=== PATIENT | male | born 1935 ===

== ENCOUNTER 2016-09-01 07:36 | Day surgery (SDC) | payer MEDICARE ==
[2016-08-28 10:18] VITALS: BMI 35.7
[2016-09-01] MEDS ORDERED: cefTRIAXone IV 1 gm in Dextros 50 ML IVPB ONE (09:12)
[2016-09-01] MEDS ORDERED: Ciprofloxacin 400mg/200ml D5W 0 ML IVPB ONE (09:12)
[2016-09-01] MEDS ORDERED: Iohexol 240 (50 ml) ONE (09:12)
[2016-09-01] MEDS ORDERED: Lactated Ringer's 1,000 ML IV ONE (09:30)
[2016-09-01] MEDS ORDERED: Sodium Chloride 0.9% 500 ML IV ONE ×2 (09:30→10:04)
[2016-09-01] MEDS ORDERED: Midazolam 2 MG/2 ML VIAL ONE (09:34)
[2016-09-01] MEDS ORDERED: Propofol 10 mg/ml Inj (20 ML) ONE (09:35)
[2016-09-01] MEDS ORDERED: Phenylephrine 10 mg/ml Inj ONE (09:53)
--- NOTE | 2016-09-01 10:55 | RAD ---
PROCEDURE: Fluoroscopy up to 1 hr. HISTORY: HYDRONEPHROSIS COMPARISON: None TECHNIQUE: Standard protocol for this study/examination. FINDINGS: Submitted images from the current procedure: 7.0 IMPRESSION: Less than 1 hr fluoroscopic time utilized during performance of the procedure.
--- NOTE | 2016-09-01 11:09 | OP ---
PROCEDURE DATE: 09/01/2016 PREOPERATIVE DIAGNOSES: Bilateral hydroureteronephrosis and metastatic prostate cancer. POSTOPERATIVE DIAGNOSES: Bilateral hydroureteronephrosis and metastatic prostate cancer. PROCEDURE: Cystoscopy with dilatation of urethral meatal stenosis, and bilateral ureteral stent exch mingo. SURGEON: Jay Abarca MD. DESCRIPTION OF PROCEDURE: The patient was brought to the operating room. He was premedicated with R ocephin 1 gram IV piggyback, placed in lithotomy position under anesthesia. Examination of the penis revealed partial phimosis with a snug partially hidden urethral meatus. I was easily able to dilate it atraumatically up to 26-Russian using curved metal sounds. We then introduced a 22-Russian cystosc ope. Anterior and bulbar urethra was normal. The bladder neck was somewhat tight and rigid, but we were able to negotiate this without any problems. Within the urinary bladder, 2 distal ends of bilat eral ureteral stent coils were noted with some mild cystitis noted as well. We now turned our attention to the right stent. Using a grasper, I was able to remove the right uret eral stent to the urethral meatus. I tried to backload a ureteral guidewire through the lumen, but t his was unsuccessful. We then removed the right ureteral stent in its entirety and discarded it, rep laced the cystoscope, and under direct vision, using both a ureteral open-ended catheter and the Glid ewire, I was able to intubate the right ureter up to the right renal pelvis. We then advanced a [employer] 6-Russian multilength contour VL stent using fluoroscopic and cystoscopic control. In a similar manner, we removed the left ureteral stent, and then under direct vision, we were able to pl [place] a left-sided Glidewire with the help of an open-ended ureteral stent. After determining good coi ling in the proximal left renal pelvis, we then advanced a second [employer] 6-Russian multilen gth contour VL stent, and using cystoscopic and fluoroscopic control, were able to place the stent, a nd of course, remove the Glidewire. We then slightly manipulated, using a grasper, both distal ends of the stent to pull them out about a centimeter or so. We had good coiling proximally and distally. The bladder was emptied, the scope removed. The patient tolerated the procedure well. Jay Abarca MD cc: 66 TT: 09/01/2016 11:01:39 jn
--- NOTE | 2016-09-01 16:42 | RAD ---
HISTORY: HYDRONEPHROSIS COMPARISON: 03/17/2016. FINDINGS: BOWEL: Normal. No obstruction. No free air. BONES: Scoliosis, secondary degenerative change at multiple levels. New line asymmetric sclerosis of the left iliac bone and right sacroiliac region likely sclerotic metastatic disease unchanged compared prior studies. Sclerotic changes in the right femur intertrochanteric region incompletely visualize. OTHER FINDINGS: Position of the double J stent catheter(s): Satisfactory bilaterally. Surgical clips pelvis likely related prior prostatectomy. IMPRESSION: Satisfactory position double-J stent catheters. Sclerotic metastatic disease pelvis and visualized proximal right femur
[2016-09-03 15:31] VITALS: PULSE 60
[2016-09-03 15:34] VITALS: BP 120/70; RESP 19; TEMP 97.6; O2SAT 100
== END 2016-09-01 13:13 | disposition home or self-care (01) ==
LOC: C.SDS 07:36
PROVIDERS: ATTEND Urology
DX: N13.30 Unspecified hydronephrosis (principal); C61 Malignant neoplasm of prostate; N47.1 Phimosis; N35.8 Other urethral stricture; I12.9 Hypertensive chronic kidney disease with stage 1 through stage 4 chronic kidney disease, or unspecified chronic kidney disease; N18.9 Chronic kidney disease, unspecified
CPT/HCPCS: 52332; 74000; 87086; C1769; C2617; J0696; J7040

== ENCOUNTER 2017-05-06 07:25 | Day surgery (SDC) | payer MEDICARE ==
[2017-05-04 11:16] VITALS: BMI 34.4
[2017-05-06] MEDS ORDERED: Iohexol 240 (50 ml) ONE (08:50)
[2017-05-06] MEDS ORDERED: Ciprofloxacin 400mg/200ml D5W 0 MG/0 ML BAG IVPB ONE (08:50)
[2017-05-06] MEDS ORDERED: Lidocaine 2% Jelly (Uro-Jet) ONE (08:51)
[2017-05-06] MEDS ORDERED: Lactated Ringer's 500 ML IV ONE ×2 (09:13)
[2017-05-06] MEDS ORDERED: Midazolam 2 MG/2 ML VIAL ONE (09:18)
[2017-05-06] MEDS ORDERED: Propofol 10 mg/ml Inj (20 ML) ONE (09:18)
[2017-05-06] MEDS ORDERED: Gentamicin 80 mg in 0.9% NS 160 MG/200 ML BAG IVPB ONE (09:23)
[2017-05-06] MEDS ORDERED: cefTRIAXone IV 1 gm in Dextros 50 ML IVPB ONE (09:23)
[2017-05-06] MEDS: Lactated Ringer's 500 ML IV ONE (10:15)
[2017-05-06] MEDS ORDERED: HYDROmorphone 0.5 mg/0.5 ml ISec IVP PRN (10:34)
[2017-05-06] MEDS ORDERED: Lactated Ringer's 1,000 ML IV SCH (10:45)
--- NOTE | 2017-05-06 10:54 | RAD ---
PROCEDURE: Intraoperative fluoroscopy HISTORY: PROSTATE CANCER, BILAT HIDRONEPHROSIS COMPARISON: Not available TECHNIQUE: Intraoperative fluoroscopy was performed for placement of bilateral ureteral stents. Total time of fluoroscopy was 56.2 seconds. FINDINGS: Multiple fluoroscopic spot films are submitted. Films are on file for review. IMPRESSION: Fluoroscopy provided.
[2017-05-06 11:46] VITALS: RESP 20; O2SAT 97
[2017-05-06 12:10] VITALS: BP 125/75; PULSE 65; TEMP 97.7
--- NOTE | 2017-05-06 12:40 | OP ---
PROCEDURE DATE: 05/06/2017 PREOPERATIVE DIAGNOSES: Bilateral hydroureteronephrosis and stage D adenocarcinoma of the prostate. 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 PROCEDURE: Cystoscopy and bilateral ureteral stent exchange, and urethral meatal dilatation. SURGEON: Jay Abarac MD OPERATIVE PROCEDURE: The patient was brought to the operating room. He was premedicated with gentamicin 160 mg and Rocephin 1 g IV piggyback. The patient was placed in lithotomy position. A sequential compression stockings were placed, prepped and draped in the usual fashion. A partial phimosis was noted. The urethral meatus was snug and I could not easily introduce to the 22-Tristanian with an obturator. Accordingly, using curve metal starting in 22-Tristanian, I easily dilated up the urethral meatus up to 26-Tristanian. We would now able to easily traverse the urethral meatus and enter the bladder. The urethra was normal. The prostate was snug and tight especially at the bladder neck, but we could easily get into the bladder. The distal ends of both ureteral stents were noted and there was some edema of the bladder mucosa in that area as expected. We initially partially removed the left ureteral stent with a grasper and upon bringing it out to the meatus, we tried, but could not backload a guidewire through it. Accordingly, the stent was removed in its entirety and discarded. By replacing the scope, we are able now to visually and radiographically insert a left guidewire up to the left kidney. We then placed a contour 6-Tristanian Multilink ureteral stent, retrograde with fluoroscopic and cystoscopic imaging. We were then able to positioned the stent itself in the renal pelvis and had quelling in the bladder. In a similar fashion, we now removed the right ureteral stent, but this time, we were able to backload a guidewire up to the kidney. The right stent was now discarded. A second contour 6-Tristanian Multilink ureteral stent was placed and retrograde with positioning via fluoroscopic and cystoscopic control. The patient tolerated the procedure well. Jay Abarca MD
[2017-05-06 12:44] LABS: URINE BACTERIA RARE (<OCC); URINE BILIRUBIN NEGATIVE (NEGATIVE); URINE BLOOD 3+ (NEGATIVE); URINE COLOR Colorless (YELLOW); URINE GLUCOSE (UA) NORMAL (Normal); URINE HYALINE CAST 0-2 /lpf (0-2); URINE KETONE NEGATIVE (NEGATIVE); URINE LEUKOCYTE ESTERASE TRACE Leu/uL (Negative); URINE PROTEIN NEGATIVE (NEGATIVE); URINE UROBILINOGEN NORMAL mg/dL (0.2-1.0); WBC URINE 1 /hpf (0-5)
[2017-05-06 12:45] LABS: RBC URINE 9 /hpf (0-3)
[2017-05-07] MEDS ORDERED: Metoprolol Succinate 25 mg XL Tab PO SCH (10:00)
== END 2017-05-06 12:05 | disposition home or self-care (01) ==
LOC: C.SDS 07:25
PROVIDERS: ATTEND Urology
DX: N13.30 Unspecified hydronephrosis (principal); R97.21 Rising PSA following treatment for malignant neoplasm of prostate; C61 Malignant neoplasm of prostate
CPT/HCPCS: 50395; 52332; 76000; 81001; 87086; FLUOR; J0696; J1580; J7120

== ENCOUNTER 2017-10-21 07:13 | Day surgery (SDC) | payer MEDICARE ==
[2017-10-19 09:54] VITALS: BMI 33.3
[2017-10-21] MEDS ORDERED: Ciprofloxacin 400mg/200ml D5W 400 MG/200 ML BAG IVPB ONE (09:06)
[2017-10-21] MEDS ORDERED: Iohexol 240 (50 ml) ONE (09:06)
[2017-10-21] MEDS ORDERED: cefTRIAXone IV 1 gm in Dextros 50 ML IVPB ONE (09:32)
[2017-10-21] MEDS ORDERED: HYDROmorphone 0.5 mg/0.5 ml ISec IVP PRN (10:07)
--- NOTE | 2017-10-21 10:49 | RAD ---
PROCEDURE: Intraoperative fluoroscopy HISTORY: BILAT HYDRONEPHROSIS COMPARISON: Not available TECHNIQUE: Intraoperative fluoroscopy was provided for a ureteral stent change. Total time of fluoroscopy was 33.9 seconds. FINDINGS: Four fluoroscopic spot films are submitted. Films are on file for review. IMPRESSION: Fluoroscopy provided
[2017-10-21 11:45] VITALS: PULSE 73; RESP 16; TEMP 97.5
[2017-10-21 12:15] VITALS: BP 121/67; O2SAT 99
--- NOTE | 2017-10-21 21:21 | OP ---
PROCEDURE DATE: 10/21/2017 PREOPERATIVE DIAGNOSES: Bilateral hydronephrosis and prostate cancer. POSTOPERATIVE DIAGNOSES: Bilateral hydronephrosis and prostate cancer. PROCEDURE: Cystoscopy with bilateral indwelling ureteral stent exchange. SURGEON: Jay Abarca MD DESCRIPTION OF PROCEDURE: The patient was brought to the operating room, premedicated with 1 gm of Rocephin IV piggyback, prepped and draped in the usual fashion, placed in lithotomy position. Examination of the penis reveals partial phimosis; however, I was easily able to calibrate the urethral meatus up to 26 German without any snugness and clearly this area is not strictured as it was previously. We now inserted a 22-German cystoscope. The anterior and bulbar urethra were normal. The bladder revealed hyperemia compatible with chronic stents and 2 distal ends of stents were seen in the bladder. Fluoroscopy confirmed the proximal positioning of both previously placed stents. Using a grasping forceps, I was able to partially remove the left ureteral stent out to the urethral meatus and then back load a glide wire up to the renal pelvis. The stent was removed in its entirety and discarded. Then, a fresh [place] [employer] contour VL 6-German Multi-Link stent was replaced using fluoroscopic and cystoscopic control. In a similar fashion, we were able to remove the right ureteral stent up to the meatus and a glide wire back loaded. That right sided stent was now removed and discarded. The glide wire was back loaded through the scope and then under visual and cystoscopic and fluoroscopic control, a second [place] [employer] Contour VL 6-German Multi-Link stent was placed up to the right kidney. After both stents were inserted, I reinserted the grasping forceps just to gently tug on the left distal stent in the bladder and pulled it down a bit, and the placement now was confirmed to be in good position proximally and distally for both stents. The bladder was emptied and the scope removed. The patient tolerated the procedure well. Jay Abarca MD
== END 2017-10-21 12:13 | disposition home or self-care (01) ==
LOC: C.SDS 07:13
PROVIDERS: ATTEND Urology
DX: N13.30 Unspecified hydronephrosis (principal); C61 Malignant neoplasm of prostate; I12.9 Hypertensive chronic kidney disease with stage 1 through stage 4 chronic kidney disease, or unspecified chronic kidney disease; N18.9 Chronic kidney disease, unspecified; F32.9 Major depressive disorder, single episode, unspecified; D64.9 Anemia, unspecified
CPT/HCPCS: 52332; C1769; C2617; J0696

== ENCOUNTER 2017-12-08 13:02 | Inpatient (IN) | payer MEDICARE ==
[2017-12-08 13:02] VITALS: BMI 31.8
--- NOTE | 2017-12-08 14:46 | RAD ---
PROCEDURE: CHEST RADIOGRAPH, 1 VIEW HISTORY: SOB COMPARISON: Chest radiograph dated 10/19/2017. FINDINGS: LUNGS: Clear. PLEURA: No pneumothorax or pleural fluid seen. CARDIOVASCULAR: Atherosclerotic aortic calcifications. Cardiomediastinal silhouette stably prominent. OSSEOUS STRUCTURES: Unchanged. VISUALIZED UPPER ABDOMEN: Partially imaged right ureteral stent. Right upper quadrant surgical clips. OTHER FINDINGS: None. IMPRESSION: No active disease.
--- NOTE | 2017-12-08 14:58 | C.PDOC ---
History Of Present Illness 82 year old male sent to ER by Dr. Gee for abnormal lab work. As per ex- , patient has a Hx of cancer and has been having diarrhea since last night, associated with loss of appetite, weight loss, and weakness. Patient is currently receiving two week treatments every other two weeks. Time Seen by Provider: 12/08/17 14:09 Chief Complaint (Nursing): Abnormal Labs History Per: Family Onset/Duration Of Symptoms: Days Current Symptoms Are (Timing): Still Present Recent travel outside of the [place]: No Past Medical History Reviewed: Historical Data, Nursing Documentation, Vital Signs Vital Signs: Last Vital Signs Temp 97.7 F 12/08/17 13:05 Pulse 74 12/08/17 16:00 Resp 19 12/08/17 16:00 BP 118/69 12/08/17 16:00 Pulse Ox 100 12/08/17 18:11 - Medical History PMH: Anemia, Gall Bladder Disease (CHOLECYSTECTOMY), HTN, Peripheral Edema (1 year ago post radiation rx no longer), Chronic Kidney Disease Surgical History: [facility], [facility] CLOSED ENDOSCOPIC BIOPSY OF LARGE INTESTINE (05/06/05) ENDOSC POLYPECTOMY OF LG INTEST (06/10/02) FLUOROSCOPY OF R JUGULAR VEIN USING L OSM CONTRAST, GUIDANCE (06/26/15) INSERT INFUSION DEV IN R INT JUGULAR VEIN, PERC (06/26/15) INSERTION OF OTHER DEVICE INTO GENITOURINARY TRACT, ENDO (06/26/15) PACKED CELL TRANSFUSION (05/15/14) PERCU NEPHROSTM W/O FRAG (04/21/14) PERCUTAN NEEDLE BX OF INTRA-ABDOMINAL MASS (04/21/14) PERCUTANEOUS PYELOGRAM (07/18/14) PERFORMANCE OF URINARY FILTRATION, MULTIPLE (06/26/15) RADIOTHERAPEUT PROC NEC (05/15/14) REMOV URETERAL DRAIN (11/15/14) REPLACE INDWELLING CATH (11/15/14) ULTRASONOGRAPHY OF RIGHT JUGULAR VEINS, GUIDANCE (06/26/15) URETERAL CATHETERIZATION (04/21/14) URETHRAL DILATION (11/15/14) VACCINATION NEC (07/18/14) Family History: States: Unknown Family Hx - Social History Hx Tobacco Use: No Hx Alcohol Use: No Hx Substance Use: No - Immunization History Hx Influenza Vaccination: Yes Hx Pneumococcal Vaccination: Yes Review Of Systems Constitutional: Positive for: Weakness, Weight loss. Negative for: Fever, Chills ENT: Negative for: Ear Pain, Throat Swelling Cardiovascular: Negative for: Chest Pain, Palpitations Respiratory: Negative for: Cough, Shortness of Breath Gastrointestinal: Positive for: Diarrhea. Negative for: Nausea, Vomiting Neurological: Negative for: Numbness Physical Exam - Physical Exam Appears: Chronically Ill Skin: Warm, Dry, No Rash, Jaundice Head: Atraumatic, Normacephalic Eye(s): bilateral: Normal Inspection, PERRL, EOMI Oral Mucosa: Moist Neck: Normal, Supple Chest: Symmetrical, No Tenderness Cardiovascular: Rhythm Regular, No Friction Rub, No Murmur Respiratory: Normal Breath Sounds, No Rales, No Rhonchi, No Wheezing Gastrointestinal/Abdominal: Soft, No Tenderness, Distention (Mild to moderate), Other (periumbilical ecchymosis) Back: Normal Inspection, No CVA Tenderness Extremity: Normal ROM, No Pedal Edema Neurological/Psych: Oriented x3, Normal Speech Gait: Steady ED Course And Treatment - Laboratory Results Result Diagrams: 12/08/17 14:52 12/08/17 14:52 O2 Sat by Pulse Oximetry: 100 (Room air) Pulse Ox Interpretation: Normal - Radiology CXR: Read By Radiologist CXR Interpretation: Yes: No Acute Disease - Other Rad CXR X-Ray: Read By Radiologist Interpretation: Accession No. : [id number]. Patient Name / ID : ALFRED KENT / [id number]. Exam Date : 12/08/2017 14:40:10 ( Approved ). Study Comment : Sex / Age : M / [id number]. Creator : Nazario Hewitt MD. Dictator : Nazario Hewitt MD. Oracle Applications Developer : Prototype Machine Operator : Nazario Hewitt MD. Approver2 : Report Date : 12/08/2017 14:45:28. My Comment : . PROCEDURE: CHEST RADIOGRAPH, 1 VIEW. HISTORY: SOB. COMPARISON: Chest radiograph dated 10/19/2017. FINDINGS: LUNGS: Clear. PLEURA: No pneumothorax or pleural fluid seen. CARDIOVASCULAR: Atherosclerotic aortic calcifications. Cardiomediastinal silhouette stably prominent. OSSEOUS STRUCTURES: Unchanged. VISUALIZED UPPER ABDOMEN: Partially imaged right ureteral stent. Right upper quadrant surgical clips. OTHER FINDINGS: None. IMPRESSION: No active disease. Medical Decision Making Medical Decision Making: Blood work, CXR, and urinalysis ordered. The case was discussed with Dr. Gee who wants to consult on the patient for hematology. The case was discussed with Dr. Huddleston (covers for Dr. Arvizu ) who agrees to admit the patient on his service. Disposition - Disposition Disposition: HOSPITALIZED Disposition Time: 15:00 Condition: STABLE - POA Present On Arrival: None - Clinical Impression Clinical Impression: Anemia, Ascites, Acute renal failure, Failure to thrive - PA / BOOK CANVASSER / Resident Statement MD/DO has reviewed & agrees with the documentation as recorded. - Scribe Statement The provider has reviewed the documentation as recorded by the [place] Kaplan All medical record entries made by the [place] were at my direction and personally dictated by me. I have reviewed the chart and agree that the record accurately reflects my personal performance of the history, physical exam, medical decision making, and the department course for this patient. I have also personally directed, reviewed, and agree with the discharge instructions and disposition.
[2017-12-08 15:03] LABS: BASO % 0.7 % (0.0-2.0); EOS # 0.1 K/uL (0.0-0.7); EOS % 1.6 % (0.0-4.0); HEMOGLOBIN 8.9 g/dL (12.0-18.0); LYMPH # 1.2 K/uL (1.0-4.3); LYMPH % 17.7 % (20.0-40.0); MEAN CELL VOLUME 90.9 fL (80.0-94.0); MEAN CORPUSCULAR HEMOGLOBIN 29.1 pg (27.0-31.0); MEAN PLATELET VOLUME 7.6 fL (7.2-11.7); MONO # 0.4 K/uL (0.0-0.8); MONO % 6.6 % (0.0-10.0); NEUT # 4.9 K/uL (1.8-7.0); NEUT % 73.4 % (50.0-75.0); NRBC % 0.1 % (0.0-2.0); RBC 3.04 Mil/uL (4.40-5.90); RED CELL DISTRIBUTION WIDTH 18.4 % (11.5-14.5); WHITE BLOOD COUNT 6.7 K/uL (4.8-10.8)
[2017-12-08 15:04] LABS: SQUAMOUS EPITHIAL 3 /hpf (0-5); URINE BACTERIA OCC (<OCC); URINE BILIRUBIN NEGATIVE (NEGATIVE); URINE BLOOD 3+ (NEGATIVE); URINE CLARITY Hazy (Clear); URINE COLOR Amber (YELLOW); URINE GLUCOSE (UA) NORMAL (Normal); URINE LEUKOCYTE ESTERASE 2+ Leu/uL (Negative); URINE PROTEIN 2+ mg/dL (NEGATIVE); URINE UROBILINOGEN NORMAL mg/dL (0.2-1.0)
[2017-12-08 15:09] LABS: ALB/GLOB RATIO 1.6 (1.0-2.1); ALBUMIN 3.9 g/dL (3.5-5.0); ALT/SGPT 22 U/L (21-72); AST/SGOT 32 U/L (17-59); BLOOD UREA NITROGEN 33 mg/dL (9-20); CALCIUM 8.4 mg/dl (8.6-10.4); GFR AFRICAN-AMERICAN 30; GFR NON-AFRICAN AMERICAN 25; INR 1.3; PROTHROMBIN TIME 14.6 SECONDS (9.7-12.2)
[2017-12-08 15:20] LABS: B-TYPE NATRIURETIC PEPTIDE 807 pg/mL (0-900); CK-MB 0.98 ng/mL (0.0-3.38)
[2017-12-08] MEDS ORDERED: Sodium Chloride 0.9% 1,000 ML IV ONE (16:14)
[2017-12-08] MEDS ORDERED: Sodium Chloride 0.9% 1,000 ML ONE (16:22)
[2017-12-08] MEDS ORDERED: Dextrose 5%/0.9% NS 1,000 ML IV ONE (20:00)
--- NOTE | 2017-12-08 20:49 | CP.PCM.HP ---
History of Present Illness - History of Present Illness History of Present Illness: Chief complaint: Abdominal pain HPI: 81-year-old male with a history of chronic kidney disease, anemia, hypertension , prostate cancer, status post radiation treatment, history of acute renal insufficiency, bilateral hydronephrosis, bilateral stent in the urethral area, also multiple metastatic pancreatic prostatic cancer. Patient was having difficulty in going to the bathroom for almost 2 weeks. 2 weeks ago patient had a severe constipation, he started using an enema with some improvement. But following that he started having increasing abdominal distention, abdominal discomfort, and poor appetite. He was also having diarrheal episodes on and off. Difficulty in breathing. So he came into the emergency room after he was seen by today he started having increasing abdominal distention, and worsening oncologist in the office. He has a nausea, poor appetite, but no vomiting noted. Patient has some urinary discomfort, and blood in the urine noted Patient in the past had acute renal insufficiency, secondary to obstruction, and underwent a hemodialysis in the past. But post stent placement he started making urine, renal function was returning to near normal. Past medical history: Metastatic prostatic cancer, with intra-abdominal extension. Status post treatment. Hypertension. Depression. Renal insufficiency Anemia. Gallbladder disease Surgical history: Patient had a multiple surgical intervention for the ureteral obstruction. Hemodialysis in the past. Allergies: No known drug allergy Personal history: Non-smoker nonalcoholic. He denies any drug abuse. Patient lives with the family. Patient has a good family support Review of system: He has no headache. He denies any chest pain. Complaining of no nausea vomiting. He does not take any pain medications. Complaining of increasing abdominal discomfort, abdominal distention, constipation on and off. On examination: Vital signs stable. Chest bilateral good air entry. Regular heart sound noted. Abdominal distention, noted. Decreased bowel movements noted. Pedal edema 1+ noted. BLENDING MACHINE OPERATOR alert awake oriented Labs reviewed Elevation of the creatinine level noted. Anemia present. Chest x-ray is nonspecific Assessment and recommendation: 81-year-old male with a history of hypertension, renal insufficiency, with history of acute intestinal obstruction renal insufficiency in the past. Did have a hemodialysis in the past. Patient has a obstruction secondary to metastatic prostatic cancer, status post distant bilaterally. Patient now have abdominal distention, possibly secondary to dynamic ileus cannot be ruled out. Intestinal obstruction cannot be ruled out. Suggested to have a CAT scan of the abdomen and pelvis. IV fluids to be continued. Rule out hydronephrosis. Hematuria, likely secondary to malignancy. Cultures were ordered. Pain management as needed. GI evaluation may be needed. And also urology. DVT GI prophylaxis. We will follow the patient. Present on Admission - Present on Admission Any Indicators Present on Admission: No History of DVT/PE: No History of Uncontrolled Diabetes: No Urinary Catheter: No Decubitus Ulcer Present: No Past Patient History - Infectious Disease Hx of Infectious Diseases: None - Tetanus Immunizations Tetanus Immunization: Unknown - Past Medical History & Family History Past Medical History?: Yes - Past Social History Smoking Status: Never Smoked - CARDIAC Hx Hypertension: Yes Hx Peripheral Edema: Yes (1 year ago post radiation rx no longer) - RENAL Hx Chronic Kidney Disease: Yes - HEMATOLOGICAL/ONCOLOGICAL Hx Anemia: Yes - MUSCULOSKELETAL/RHEUMATOLOGICAL Other/Comment: HX: CANCER-BONE"NO SURE EXACTLY WHAT PART OF BODY" - GASTROINTESTINAL Hx Gall Bladder Disease: Yes (CHOLECYSTECTOMY) - GENITOURINARY/GYNECOLOGICAL Hx Genitourinary Disorders: Yes Hx Prostate Cancer: Yes Hx Prostate Problems: Yes Hx Urinary Tract Infection: Yes (2-9-15) Other/Comment: HAD BILATERAL NEPHROSTOMY WERE REMOVED - PSYCHIATRIC Hx Substance Use: No - SURGICAL HISTORY Hx Cholecystectomy: Yes - ANESTHESIA Hx Anesthesia: Yes Hx Anesthesia Reactions: No Hx Malignant Hyperthermia: No Meds Allergies/Adverse Reactions: Allergies Allergy/AdvReac Type Severity Reaction Status Date / Time No Known Allergies Allergy Verified 06/26/15 16:33 Results - Vital Signs Recent Vital Signs: Last Vital Signs Temp 97.9 F 12/08/17 18:20 Pulse 82 12/08/17 18:20 Resp 20 12/08/17 18:20 BP 124/74 12/08/17 18:20 Pulse Ox 100 12/08/17 18:20 - Labs Result Diagrams: 12/08/17 14:52 12/08/17 14:52 Labs: Laboratory Results - last 24 hr 12/08/17 12/08/17 12/08/17 14:52 14:52 14:52 WBC 6.7 RBC 3.04 L Hgb 8.9 L Hct 27.7 L MCV 90.9 MCH 29.1 MCHC 32.0 L RDW 18.4 H Plt Count 258 MPV 7.6 Neut % (Auto) 73.4 Lymph % (Auto) 17.7 L [place] % (Auto) 6.6 Eos % (Auto) 1.6 Baso % (Auto) 0.7 Neut # (Auto) 4.9 Lymph # (Auto) 1.2 [place] # (Auto) 0.4 Eos # (Auto) 0.1 Baso # (Auto) 0.0 PT INR APTT Sodium 143 Potassium 5.2 Chloride 107 Carbon Dioxide 20 L Anion Gap 21 H BUN 33 H Creatinine 2.5 H Est GFR ( Amer) 30 Est GFR (Non-Af Amer) 25 Random Glucose 103 Calcium 8.4 L Total Bilirubin 1.7 H AST 32 ALT 22 Alkaline Phosphatase 58 Total Creatine Kinase 76 CK-MB (Mass) 0.98 Troponin I < 0.0120 NT-Pro-B Natriuret Pep 807 Total Protein 6.4 Albumin 3.9 Globulin 2.5 Albumin/Globulin Ratio 1.6 Urine Color Urine Clarity Urine pH Ur Specific [place] Urine Protein Urine Glucose (UA) Urine Ketones Urine Blood Urine Nitrate Urine Bilirubin Urine Urobilinogen Ur Leukocyte Esterase Urine WBC (Auto) Urine RBC (Auto) Ur Squamous Epith Cells Urine Bacteria Blood Type O POSITIVE Antibody Screen Negative 12/08/17 12/08/17 14:52 14:52 WBC RBC Hgb Hct MCV MCH MCHC RDW Plt Count MPV Neut % (Auto) Lymph % (Auto) [place] % (Auto) Eos % (Auto) Baso % (Auto) Neut # (Auto) Lymph # (Auto) [place] # (Auto) Eos # (Auto) Baso # (Auto) PT 14.6 H INR 1.3 APTT 31 Sodium Potassium Chloride Carbon Dioxide Anion Gap BUN Creatinine Est GFR ( Amer) Est GFR (Non-Af Amer) Random Glucose Calcium Total Bilirubin AST ALT Alkaline Phosphatase Total Creatine Kinase CK-MB (Mass) Troponin I NT-Pro-B Natriuret Pep Total Protein Albumin Globulin Albumin/Globulin Ratio Urine Color [place] Urine Clarity Hazy Urine pH 5.0 Ur Specific [place] 1.015 Urine Protein 2+ H Urine Glucose (UA) Normal Urine Ketones Negative Urine Blood 3+ H Urine Nitrate Negative Urine Bilirubin Negative Urine Urobilinogen Normal Ur Leukocyte Esterase 2+ H Urine WBC (Auto) 84 H Urine RBC (Auto) 1329 H Ur Squamous Epith Cells 3 Urine Bacteria Occ H Blood Type Antibody Screen
[2017-12-09 07:58] LABS: BASO % 0.5 % (0.0-2.0); EOS # 0.1 K/uL (0.0-0.7); EOS % 2.1 % (0.0-4.0); HEMOGLOBIN 7.7 g/dL (12.0-18.0); LYMPH % 16.8 % (20.0-40.0); MEAN CELL VOLUME 89.8 fL (80.0-94.0); MEAN CORPUSCULAR HEMOGLOBIN 30.3 pg (27.0-31.0); MEAN CORPUSCULAR HGB CONC 33.8 g/dL (33.0-37.0); MEAN PLATELET VOLUME 7.5 fL (7.2-11.7); MONO # 0.6 K/uL (0.0-0.8); MONO % 10.4 % (0.0-10.0); NEUT # 4.2 K/uL (1.8-7.0); NEUT % 70.2 % (50.0-75.0); NRBC % 0.1 % (0.0-2.0); RBC 2.54 Mil/uL (4.40-5.90); RED CELL DISTRIBUTION WIDTH 18.2 % (11.5-14.5)
[2017-12-09 08:39] LABS: ALB/GLOB RATIO 1.3 (1.0-2.1); ALBUMIN 2.9 g/dL (3.5-5.0); CALCIUM 7.8 mg/dl (8.6-10.4)
--- NOTE | 2017-12-09 10:02 | CT ---
PROCEDURE: CT Abdomen and Pelvis without intravenous contrast HISTORY: obstruction COMPARISON: CT scan of the abdomen and pelvis dated 06/26/2015. TECHNIQUE: Contiguous images were obtained from the domes of the diaphragms to the upper thighs without the administration of intravenous contrast. Oral contrast was not administered. Radiation dose: Total exam DLP = 1010.7 mGy-cm. This CT exam was performed using one or more of the following dose reduction techniques: Automated exposure control, adjustment of the mA and/or kV according to patient size, and/or use of iterative reconstruction technique. FINDINGS: LOWER THORAX: Bibasilar atelectasis/scarring. No focal consolidation. Cardiomegaly. Multiple right pericardiophrenic lymph nodes, the largest measures 2.8 x 2.7 cm. LIVER: Scattered right hepatic lobe calcifications. No gross lesion or ductal dilatation. GALLBLADDER AND BILE DUCTS: Prior cholecystectomy with surgical clips in. PANCREAS: Atrophic. No gross lesion or ductal dilatation. SPLEEN: Unremarkable. ADRENALS: Nodular thickening. No mass. KIDNEYS AND URETERS: Atrophic kidneys. Bilateral double-J ureteral stents. Right proximal stent this cold within upper pole calyx. Mild hydronephrosis in the lower pole calyx on the right. No solid mass. VASCULATURE: Unremarkable. No aortic aneurysm. BOWEL: Unremarkable. No obstruction. No gross mural thickening. APPENDIX: Not identified. PERITONEUM: Small bilateral fat containing inguinal hernias. Small volume ascites. No free air. LYMPH NODES: Conglomerate mass of lymph nodes in the gastrohepatic ligament spanning 9.2 x 3.5 cm soft tissue mass inferior to the stomach measuring 5.0 x 6.1 cm conglomerate soft tissue mass in the left pericolic gutter measuring 7.3 x 12.0 cm mass in the left right pericolic gutter measuring 6.4 x 6.0 cm. Mass in the left lower quadrant measuring 11.2 x 7.5 cm. Right paraesophageal lymph node measuring 2.4 x 1.8 cm. BLADDER: Unremarkable. REPRODUCTIVE: Prostate non visualized. BONES: No acute fracture. Patchy sclerosis in the right femoral neck and left acetabular/superior pubic ramus junction. Patchy sclerosis in the right ischium. Patchy sclerotic foci in scattered vertebral bodies, ribs and scapula. OTHER FINDINGS: None. IMPRESSION: No bowel obstruction. Peritoneal carcinomatosis with small volume ascites and multiple tumor implants in the pericolic gutters and other lymph node stations described above. Osteoblastic bony metastases. Bilateral nephro ureteral stents. The right proximal stent discordant upper pole calyx with residual hydronephrosis of the lower pole calyx. Additional findings as above.
--- NOTE | 2017-12-09 10:13 | CP.PCM.CON ---
History of Present Illness - History of Present Illness History of Present Illness: H/o met prostate CA- Constipation. Diarrhea. ABdom distention. Review of Systems - Constitutional Constitutional: Fatigue - EENT Eyes: absent: Photophobia Nose/Mouth/Throat: absent: Mouth Lesions - Cardiovascular Cardiovascular: absent: Chest Pain, Dyspnea - Respiratory Respiratory: absent: Hemoptysis, Wheezing - Gastrointestinal Gastrointestinal: Abdominal Pain, Constipation, Diarrhea, Nausea. absent: Hematemesis, Hematochezia, Melena, Vomiting - Genitourinary Genitourinary: Hematuria - Musculoskeletal Musculoskeletal: absent: Muscle Weakness - Integumentary Integumentary: absent: Jaundice - Neurological Neurological: absent: Confusion, Convulsions - Psychiatric Psychiatric: absent: Hallucinations Past Patient History - Infectious Disease Hx of Infectious Diseases: None - Tetanus Immunizations Tetanus Immunization: Unknown - Past Medical History & Family History Past Medical History?: Yes - Past Social History Smoking Status: Never Smoked - CARDIAC Hx Cardiac Disorders: Yes Hx Hypertension: Yes Hx Peripheral Edema: Yes (1 year ago post radiation rx no longer) - PULMONARY Hx Respiratory Disorders: No - NEUROLOGICAL Hx Neurological Disorder: No - HEENT Hx HEENT Problems: No - RENAL Hx Chronic Kidney Disease: Yes - ENDOCRINE/METABOLIC Hx Endocrine Disorders: Yes Hx Diabetes Mellitus Type 2: Yes - HEMATOLOGICAL/ONCOLOGICAL Hx Blood Disorders: Yes Hx Anemia: Yes Hx Blood Transfusions: Yes - INTEGUMENTARY Hx Dermatological Problems: No - MUSCULOSKELETAL/RHEUMATOLOGICAL Hx Musculoskeletal Disorders: No Hx Falls: No - GASTROINTESTINAL Hx Gastrointestinal Disorders: Yes Hx Gall Bladder Disease: Yes (CHOLECYSTECTOMY) Hx Vomiting: Yes - GENITOURINARY/GYNECOLOGICAL Hx Genitourinary Disorders: Yes Hx Prostate Cancer: Yes Hx Prostate Problems: Yes Hx Urinary Tract Infection: Yes (2-9-15) Other/Comment: HAD BILATERAL NEPHROSTOMY WERE REMOVED - PSYCHIATRIC Hx Psychophysiologic Disorder: No Hx Substance Use: No - SURGICAL HISTORY Hx Surgeries: Yes Hx Cholecystectomy: Yes Other/Comment: HX NEPHROSTOMY - ANESTHESIA Hx Anesthesia: Yes Hx Anesthesia Reactions: No Hx Malignant Hyperthermia: No Meds Allergies/Adverse Reactions: Allergies Allergy/AdvReac Type Severity Reaction Status Date / Time No Known Allergies Allergy Verified 06/26/15 16:33 - Medications Medications: Current Medications Heparin Sodium (Porcine) (Heparin) 5,000 units SC Q8 [facility] Last Admin: 12/09/17 05:18 Dose: 5,000 units Pantoprazole Sodium (Protonix Inj) 40 mg IVP DAILY [facility] Physical Exam - Constitutional Appears: Well - Respiratory Exam Respiratory Exam: Clear to Auscultation Bilateral - Cardiovascular Exam Cardiovascular Exam: RRR - GI/Abdominal Exam GI & Abdominal Exam: Normal Bowel Sounds, Soft. absent: Distended, Guarding, Mass, Rebound, Tenderness - Extremities Exam Extremities exam: Negative for: calf tenderness - Neurological Exam Neurological exam: Alert, Oriented x3 Results - Vital Signs Recent Vital Signs: Last Vital Signs Temp 97.8 F 12/09/17 08:00 Pulse 109 H 12/09/17 08:00 Resp 20 12/09/17 08:00 BP 125/70 12/09/17 08:00 Pulse Ox 100 12/09/17 08:00 - Labs Result Diagrams: 12/09/17 07:49 12/09/17 07:49 Labs: Laboratory Results - last 24 hr 12/08/17 12/08/17 12/08/17 14:52 14:52 14:52 WBC 6.7 RBC 3.04 L Hgb 8.9 L Hct 27.7 L MCV 90.9 MCH 29.1 MCHC 32.0 L RDW 18.4 H Plt Count 258 MPV 7.6 Neut % (Auto) 73.4 Lymph % (Auto) 17.7 L [place] % (Auto) 6.6 Eos % (Auto) 1.6 Baso % (Auto) 0.7 Neut # (Auto) 4.9 Lymph # (Auto) 1.2 [place] # (Auto) 0.4 Eos # (Auto) 0.1 Baso # (Auto) 0.0 PT INR APTT Sodium 143 Potassium 5.2 Chloride 107 Carbon Dioxide 20 L Anion Gap 21 H BUN 33 H Creatinine 2.5 H Est GFR ( Amer) 30 Est GFR (Non-Af Amer) 25 POC Glucose (mg/dL) Random Glucose 103 Calcium 8.4 L Total Bilirubin 1.7 H AST 32 ALT 22 Alkaline Phosphatase 58 Total Creatine Kinase 76 CK-MB (Mass) 0.98 Troponin I < 0.0120 NT-Pro-B Natriuret Pep 807 Total Protein 6.4 Albumin 3.9 Globulin 2.5 Albumin/Globulin Ratio 1.6 Urine Color Urine Clarity Urine pH Ur Specific [place] Urine Protein Urine Glucose (UA) Urine Ketones Urine Blood Urine Nitrate Urine Bilirubin Urine Urobilinogen Ur Leukocyte Esterase Urine WBC (Auto) Urine RBC (Auto) Ur Squamous Epith Cells Urine Bacteria Blood Type O POSITIVE Antibody Screen Negative 12/08/17 12/08/17 12/08/17 14:52 14:52 22:09 WBC RBC Hgb Hct MCV MCH MCHC RDW Plt Count MPV Neut % (Auto) Lymph % (Auto) [place] % (Auto) Eos % (Auto) Baso % (Auto) Neut # (Auto) Lymph # (Auto) [place] # (Auto) Eos # (Auto) Baso # (Auto) PT 14.6 H INR 1.3 APTT 31 Sodium Potassium Chloride Carbon Dioxide Anion Gap BUN Creatinine Est GFR ( Amer) Est GFR (Non-Af Amer) POC Glucose (mg/dL) 122 H Random Glucose Calcium Total Bilirubin AST ALT Alkaline Phosphatase Total Creatine Kinase CK-MB (Mass) Troponin I NT-Pro-B Natriuret Pep Total Protein Albumin Globulin Albumin/Globulin Ratio Urine Color [place] Urine Clarity Hazy Urine pH 5.0 Ur Specific [place] 1.015 Urine Protein 2+ H Urine Glucose (UA) Normal Urine Ketones Negative Urine Blood 3+ H Urine Nitrate Negative Urine Bilirubin Negative Urine Urobilinogen Normal Ur Leukocyte Esterase 2+ H Urine WBC (Auto) 84 H Urine RBC (Auto) 1329 H Ur Squamous Epith Cells 3 Urine Bacteria Occ H Blood Type Antibody Screen 12/09/17 12/09/17 12/09/17 07:08 07:49 07:49 WBC 6.0 RBC 2.54 L Hgb 7.7 L Hct 22.8 L MCV 89.8 MCH 30.3 MCHC 33.8 RDW 18.2 H Plt Count 201 MPV 7.5 Neut % (Auto) 70.2 Lymph % (Auto) 16.8 L [place] % (Auto) 10.4 H Eos % (Auto) 2.1 Baso % (Auto) 0.5 Neut # (Auto) 4.2 Lymph # (Auto) 1.0 [place] # (Auto) 0.6 Eos # (Auto) 0.1 Baso # (Auto) 0.0 PT INR APTT 28 Sodium Potassium Chloride Carbon Dioxide Anion Gap BUN Creatinine Est GFR ( Amer) Est GFR (Non-Af Amer) POC Glucose (mg/dL) 109 Random Glucose Calcium Total Bilirubin AST ALT Alkaline Phosphatase Total Creatine Kinase CK-MB (Mass) Troponin I NT-Pro-B Natriuret Pep Total Protein Albumin Globulin Albumin/Globulin Ratio Urine Color Urine Clarity Urine pH Ur Specific [place] Urine Protein Urine Glucose (UA) Urine Ketones Urine Blood Urine Nitrate Urine Bilirubin Urine Urobilinogen Ur Leukocyte Esterase Urine WBC (Auto) Urine RBC (Auto) Ur Squamous Epith Cells Urine Bacteria Blood Type Antibody Screen 12/09/17 07:49 WBC RBC Hgb Hct MCV MCH MCHC RDW Plt Count MPV Neut % (Auto) Lymph % (Auto) [place] % (Auto) Eos % (Auto) Baso % (Auto) Neut # (Auto) Lymph # (Auto) [place] # (Auto) Eos # (Auto) Baso # (Auto) PT INR APTT Sodium 143 Potassium 4.5 Chloride 112 H Carbon Dioxide 21 L Anion Gap 14 BUN 27 H Creatinine 2.2 H Est GFR ( Amer) 35 Est GFR (Non-Af Amer) 29 POC Glucose (mg/dL) Random Glucose 112 H Calcium 7.8 L Total Bilirubin 1.1 AST 28 ALT 26 Alkaline Phosphatase 49 Total Creatine Kinase CK-MB (Mass) Troponin I NT-Pro-B Natriuret Pep Total Protein 5.1 L Albumin 2.9 L D Globulin 2.2 Albumin/Globulin Ratio 1.3 Urine Color Urine Clarity Urine pH Ur Specific [place] Urine Protein Urine Glucose (UA) Urine Ketones Urine Blood Urine Nitrate Urine Bilirubin Urine Urobilinogen Ur Leukocyte Esterase Urine WBC (Auto) Urine RBC (Auto) Ur Squamous Epith Cells Urine Bacteria Blood Type Antibody Screen Assessment & Plan (1) Abdominal pain Assessment and Plan: due to constipation, distention, metastatic dis Treat with laxatives. CT noted Status: Acute (2) Abdominal distension Assessment and Plan: constipation, mets Status: Acute (3) Constipation Status: Acute (4) Diarrhea Assessment and Plan: doubt c diff Status: Acute (5) Anemia Assessment and Plan: chronic Status: Acute (6) CKD (chronic kidney disease) stage 5, GFR less than 15 ml/min Status: Acute (7) Obstructive uropathy Assessment and Plan: stents Status: Acute (8) Primary prostate cancer with metastasis from prostate to other site Status: Acute Priority: High (9) Renal insufficiency Status: Acute (10) Urinary tract infection Status: Acute
--- NOTE | 2017-12-09 15:28 | CP.PCM.CON ---
History of Present Illness - History of Present Illness History of Present Illness: 82 yo man with history of metastatic prostate cancer being followed by me since 2013, mainly mets to intraabdominal lymph nodes, was on Lupron ans Casodex for a few years until he developed progression with pelvic mass, b/l ureteral obstuction, renal failure, needing short term dialysis, given pelvic RT and chemo with good response, treatment changed several times for disease progression, did fairly well until recently, around 2 weeks ago, he developed severe anemia, weight loss, CAT scan showing disease progression, metastatic peritoneal implants, pericardial lymph nodes and unchanged bone mets. Past Patient History - Infectious Disease Hx of Infectious Diseases: None - Tetanus Immunizations Tetanus Immunization: Unknown - Past Medical History & Family History Past Medical History?: Yes - Past Social History Smoking Status: Never Smoked - CARDIAC Hx Cardiac Disorders: Yes Hx Hypertension: Yes Hx Peripheral Edema: Yes (1 year ago post radiation rx no longer) - PULMONARY Hx Respiratory Disorders: No - NEUROLOGICAL Hx Neurological Disorder: No - HEENT Hx HEENT Problems: No - RENAL Hx Chronic Kidney Disease: Yes - ENDOCRINE/METABOLIC Hx Endocrine Disorders: Yes Hx Diabetes Mellitus Type 2: Yes - HEMATOLOGICAL/ONCOLOGICAL Hx Blood Disorders: Yes Hx Anemia: Yes Hx Blood Transfusions: Yes - INTEGUMENTARY Hx Dermatological Problems: No - MUSCULOSKELETAL/RHEUMATOLOGICAL Hx Musculoskeletal Disorders: No Hx Falls: No - GASTROINTESTINAL Hx Gastrointestinal Disorders: Yes Hx Gall Bladder Disease: Yes (CHOLECYSTECTOMY) Hx Vomiting: Yes - GENITOURINARY/GYNECOLOGICAL Hx Genitourinary Disorders: Yes Hx Prostate Cancer: Yes Hx Prostate Problems: Yes Hx Urinary Tract Infection: Yes (2-9-15) Other/Comment: HAD BILATERAL NEPHROSTOMY WERE REMOVED - PSYCHIATRIC Hx Psychophysiologic Disorder: No Hx Substance Use: No - SURGICAL HISTORY Hx Surgeries: Yes Hx Cholecystectomy: Yes Other/Comment: HX NEPHROSTOMY - ANESTHESIA Hx Anesthesia: Yes Hx Anesthesia Reactions: No Hx Malignant Hyperthermia: No Meds Allergies/Adverse Reactions: Allergies Allergy/AdvReac Type Severity Reaction Status Date / Time No Known Allergies Allergy Verified 06/26/15 16:33 - Medications Medications: Current Medications Heparin Sodium (Porcine) (Heparin) 5,000 units SC Q8 [facility] Last Admin: 12/09/17 14:29 Dose: 5,000 units Pantoprazole Sodium (Protonix Inj) 40 mg IVP DAILY [facility] Last Admin: 12/09/17 11:00 Dose: 40 mg Results - Vital Signs Recent Vital Signs: Last Vital Signs Temp 97.8 F 12/09/17 08:00 Pulse 109 H 12/09/17 08:00 Resp 20 12/09/17 08:00 BP 125/70 12/09/17 08:00 Pulse Ox 100 12/09/17 08:00 - Labs Result Diagrams: 12/09/17 07:49 12/09/17 07:49 Labs: Laboratory Results - last 24 hr 12/08/17 12/08/17 12/08/17 14:52 14:52 22:09 WBC RBC Hgb Hct MCV MCH MCHC RDW Plt Count MPV Neut % (Auto) Lymph % (Auto) [place] % (Auto) Eos % (Auto) Baso % (Auto) Neut # (Auto) Lymph # (Auto) [place] # (Auto) Eos # (Auto) Baso # (Auto) PT 14.6 H INR 1.3 APTT 31 Sodium Potassium Chloride Carbon Dioxide Anion Gap BUN Creatinine Est GFR ( Amer) Est GFR (Non-Af Amer) POC Glucose (mg/dL) 122 H Random Glucose Calcium Total Bilirubin AST ALT Alkaline Phosphatase Total Protein Albumin Globulin Albumin/Globulin Ratio Blood Type O POSITIVE Antibody Screen Negative 12/09/17 12/09/17 12/09/17 07:08 07:49 07:49 WBC 6.0 RBC 2.54 L Hgb 7.7 L Hct 22.8 L MCV 89.8 MCH 30.3 MCHC 33.8 RDW 18.2 H Plt Count 201 MPV 7.5 Neut % (Auto) 70.2 Lymph % (Auto) 16.8 L [place] % (Auto) 10.4 H Eos % (Auto) 2.1 Baso % (Auto) 0.5 Neut # (Auto) 4.2 Lymph # (Auto) 1.0 [place] # (Auto) 0.6 Eos # (Auto) 0.1 Baso # (Auto) 0.0 PT INR APTT 28 Sodium Potassium Chloride Carbon Dioxide Anion Gap BUN Creatinine Est GFR ( Amer) Est GFR (Non-Af Amer) POC Glucose (mg/dL) 109 Random Glucose Calcium Total Bilirubin AST ALT Alkaline Phosphatase Total Protein Albumin Globulin Albumin/Globulin Ratio Blood Type Antibody Screen 12/09/17 12/09/17 07:49 10:57 WBC RBC Hgb Hct MCV MCH MCHC RDW Plt Count MPV Neut % (Auto) Lymph % (Auto) [place] % (Auto) Eos % (Auto) Baso % (Auto) Neut # (Auto) Lymph # (Auto) [place] # (Auto) Eos # (Auto) Baso # (Auto) PT INR APTT Sodium 143 Potassium 4.5 Chloride 112 H Carbon Dioxide 21 L Anion Gap 14 BUN 27 H Creatinine 2.2 H Est GFR ( Amer) 35 Est GFR (Non-Af Amer) 29 POC Glucose (mg/dL) 120 H Random Glucose 112 H Calcium 7.8 L Total Bilirubin 1.1 AST 28 ALT 26 Alkaline Phosphatase 49 Total Protein 5.1 L Albumin 2.9 L D Globulin 2.2 Albumin/Globulin Ratio 1.3 Blood Type Antibody Screen Assessment & Plan (1) Primary prostate cancer with metastasis from prostate to other site Assessment and Plan: 82 yo man with widely metastatic, progressive prostate cancer to bones, L.N, peritoneal implants with symptoms of disease progression, chemo recently changed Plan- Supportive treatment, transfusion. Will discuss with family regarding the CAT scan results. Status: Acute Priority: High
--- NOTE | 2017-12-09 23:51 | CP.PCM.PN ---
Subjective - Date & Time of Evaluation Date of Evaluation: 12/09/17 Time of Evaluation: 23:51 - Subjective Subjective: Patient is awake and responding. Comfortable. But complaining on and off pain. Especially after eating some food he is having abdominal distention. Patient is getting easily fullness. On examination: Vital signs stable. Chest good air entry bilaterally regular heart sound abdominal distention noted. Tenderness in the left upper quadrant noted CAT scan of the abdomen and pelvis reviewed Mild to moderate ascites noted. Patient also has significant prostatic cancer related metastatic lesions involving the mid umbilical area, bilateral colon gutters area with the extensive metastatic changes noted. I spoke to the patient's son about the condition. He is very concerned about that but currently worsening medical condition Assessment and recommendation: 82-year-old male with a history of metastatic prostatic cancer. History of bilateral hydronephrosis status post a stent. On IV fluid. He renal function improving. Will discuss with the oncologist for further Management. f/u The patient Objective - Vital Signs/Intake and Output Vital Signs (last 24 hours): Temp Pulse Resp BP Pulse Ox 98.3 F 76 18 119/69 98 12/09/17 23:14 12/09/17 23:14 12/09/17 23:14 12/09/17 23:14 12/09/17 19:13 Intake and Output: 12/09/17 12/10/17 18:59 06:59 Intake Total 400 950 Balance 400 950 - Medications Medications: Current Medications Dexamethasone (Decadron) 4 mg PO DAILY [facility] Last Admin: 12/09/17 16:23 Dose: 4 mg Heparin Sodium (Porcine) (Heparin) 5,000 units SC Q8 [facility] Last Admin: 12/09/17 21:19 Dose: 5,000 units Pantoprazole Sodium (Protonix Inj) 40 mg IVP DAILY [facility] Last Admin: 12/09/17 11:00 Dose: 40 mg - Labs Labs: 12/09/17 07:49 12/09/17 07:49 PT 14.6 SECONDS (9.7-12.2) H 12/08/17 14:52 INR 1.3 12/08/17 14:52 APTT 28 SECONDS (21-34) 12/09/17 07:49
[2017-12-10 00:46] VITALS: RESP 20
--- NOTE | 2017-12-10 10:47 | CP.PCM.PN ---
Subjective - Date & Time of Evaluation Date of Evaluation: 12/10/17 Time of Evaluation: 10:20 - Subjective Subjective: f/u abdom pain. pt eprots feeling better.. Less abdom pain. Less abdom distention. Denies RB, melena, Cp, SOB, fever, chills, CAAL, cough Objective - Vital Signs/Intake and Output Vital Signs (last 24 hours): Temp Pulse Resp BP Pulse Ox 97.5 F L 84 20 135/76 100 12/10/17 08:29 12/10/17 08:29 12/10/17 08:29 12/10/17 08:29 12/10/17 08:29 Intake and Output: 12/10/17 12/10/17 06:59 18:59 Intake Total 1100 Balance 1100 - Medications Medications: Current Medications Dexamethasone (Decadron) 4 mg PO DAILY [facility] Last Admin: 12/10/17 10:33 Dose: 4 mg Heparin Sodium (Porcine) (Heparin) 5,000 units SC Q8 [facility] Last Admin: 12/10/17 06:08 Dose: 5,000 units Pantoprazole Sodium (Protonix Inj) 40 mg IVP DAILY [facility] Last Admin: 12/10/17 10:33 Dose: 40 mg - Labs Labs: 12/09/17 07:49 12/09/17 07:49 PT 14.6 SECONDS (9.7-12.2) H 12/08/17 14:52 INR 1.3 12/08/17 14:52 APTT 28 SECONDS (21-34) 12/09/17 07:49 - Constitutional Appears: Well - Respiratory Exam Respiratory Exam: Clear to Ausculation Bilateral - Cardiovascular Exam Cardiovascular Exam: RRR - GI/Abdominal Exam GI & Abdominal Exam: Soft, Tenderness, Normal Bowel Sounds. absent: Guarding, Mass, Rebound - Neurological Exam Neurological Exam: Alert, Oriented x3 Assessment and Plan (1) Abdominal pain Assessment & Plan: Constipation, mets Status: Acute (2) Abdominal distension Assessment & Plan: Improving. Had BM Status: Acute (3) Constipation Status: Acute (4) Diarrhea Assessment & Plan: better Status: Acute (5) Anemia Status: Acute (6) CKD (chronic kidney disease) stage 5, GFR less than 15 ml/min Status: Acute (7) Obstructive uropathy Status: Acute (8) Primary prostate cancer with metastasis from prostate to other site Status: Acute (9) Renal insufficiency Status: Acute (10) Urinary tract infection Status: Acute
[2017-12-10 11:21] LABS: HEMOGLOBIN 8.3 g/dL (12.0-18.0); MEAN CELL VOLUME 88.8 fL (80.0-94.0); MEAN CORPUSCULAR HEMOGLOBIN 29.3 pg (27.0-31.0); MEAN PLATELET VOLUME 7.6 fL (7.2-11.7); RBC 2.84 Mil/uL (4.40-5.90); RED CELL DISTRIBUTION WIDTH 18.1 % (11.5-14.5); WHITE BLOOD COUNT 6.3 K/uL (4.8-10.8)
[2017-12-10 17:10] VITALS: BP 122/70; PULSE 62; TEMP 98.3; O2SAT 97
--- NOTE | 2017-12-10 19:10 | CP.PCM.DIS ---
Provider - Provider Date of Admission: 12/08/17 16:25 Attending physician: Susanne Huddleston MD Time Spent in preparation of Discharge (in minutes): 45 Hospital Course - Lab Results Lab Results: Most Recent Lab Values WBC 6.3 K/uL (4.8-10.8) 12/10/17 11:13 RBC 2.84 Mil/uL (4.40-5.90) L 12/10/17 11:13 Hgb 8.3 g/dL (12.0-18.0) L 12/10/17 11:13 Hct 25.2 % (35.0-51.0) L 12/10/17 11:13 MCV 88.8 fL (80.0-94.0) 12/10/17 11:13 MCH 29.3 pg (27.0-31.0) 12/10/17 11:13 MCHC 33.0 g/dL (33.0-37.0) 12/10/17 11:13 RDW 18.1 % (11.5-14.5) H 12/10/17 11:13 Plt Count 185 K/uL (130-400) 12/10/17 11:13 MPV 7.6 fL (7.2-11.7) 12/10/17 11:13 Neut % (Auto) 70.2 % (50.0-75.0) 12/09/17 07:49 Lymph % (Auto) 16.8 % (20.0-40.0) L 12/09/17 07:49 [place] % (Auto) 10.4 % (0.0-10.0) H 12/09/17 07:49 Eos % (Auto) 2.1 % (0.0-4.0) 12/09/17 07:49 Baso % (Auto) 0.5 % (0.0-2.0) 12/09/17 07:49 Neut # (Auto) 4.2 K/uL (1.8-7.0) 12/09/17 07:49 Lymph # (Auto) 1.0 K/uL (1.0-4.3) 12/09/17 07:49 [place] # (Auto) 0.6 K/uL (0.0-0.8) 12/09/17 07:49 Eos # (Auto) 0.1 K/uL (0.0-0.7) 12/09/17 07:49 Baso # (Auto) 0.0 K/uL (0.0-0.2) 12/09/17 07:49 PT 14.6 SECONDS (9.7-12.2) H 12/08/17 14:52 INR 1.3 12/08/17 14:52 APTT 28 SECONDS (21-34) 12/09/17 07:49 Sodium 143 mmol/L (132-148) 12/09/17 07:49 Potassium 4.5 mmol/L (3.6-5.2) 12/09/17 07:49 Chloride 112 mmol/L (98-107) H 12/09/17 07:49 Carbon Dioxide 21 mmol/L (22-30) L 12/09/17 07:49 Anion Gap 14 (10-20) 12/09/17 07:49 BUN 27 mg/dL (9-20) H 12/09/17 07:49 Creatinine 2.2 mg/dL (0.8-1.5) H 12/09/17 07:49 Est GFR ( Amer) 35 12/09/17 07:49 Est GFR (Non-Af Amer) 29 12/09/17 07:49 POC Glucose (mg/dL) 152 mg/dL (65-110) H 12/10/17 16:22 Random Glucose 112 mg/dL (75-110) H 12/09/17 07:49 Calcium 7.8 mg/dl (8.6-10.4) L 12/09/17 07:49 Total Bilirubin 1.1 mg/dL (0.2-1.3) 12/09/17 07:49 AST 28 U/L (17-59) 12/09/17 07:49 ALT 26 U/L (21-72) 12/09/17 07:49 Alkaline Phosphatase 49 U/L (38-126) 12/09/17 07:49 Total Creatine Kinase 76 U/L (55-170) 12/08/17 14:52 CK-MB (Mass) 0.98 ng/mL (0.0-3.38) 12/08/17 14:52 Troponin I < 0.0120 ng/mL (0.00-0.120) 12/08/17 14:52 NT-Pro-B Natriuret Pep 807 pg/mL (0-900) 12/08/17 14:52 Total Protein 5.1 g/dL (6.3-8.3) L 12/09/17 07:49 Albumin 2.9 g/dL (3.5-5.0) L D 12/09/17 07:49 Globulin 2.2 gm/dL (2.2-3.9) 12/09/17 07:49 Albumin/Globulin Ratio 1.3 (1.0-2.1) 12/09/17 07:49 Urine Color [place] (YELLOW) 12/08/17 14:52 Urine Clarity Hazy (Clear) 12/08/17 14:52 Urine pH 5.0 (5.0-8.0) 12/08/17 14:52 Ur Specific [place] 1.015 (1.003-1.030) 12/08/17 14:52 Urine Protein 2+ mg/dL (NEGATIVE) H 12/08/17 14:52 Urine Glucose (UA) Normal mg/dL (Normal) 12/08/17 14:52 Urine Ketones Negative mg/dL (NEGATIVE) 12/08/17 14:52 Urine Blood 3+ (NEGATIVE) H 12/08/17 14:52 Urine Nitrate Negative (NEGATIVE) 12/08/17 14:52 Urine Bilirubin Negative (NEGATIVE) 12/08/17 14:52 Urine Urobilinogen Normal mg/dL (0.2-1.0) 12/08/17 14:52 Ur Leukocyte Esterase 2+ Mar/uL (Negative) H 12/08/17 14:52 Urine WBC (Auto) 84 /hpf (0-5) H 12/08/17 14:52 Urine RBC (Auto) 1329 /hpf (0-3) H 12/08/17 14:52 Ur Squamous Epith Cells 3 /hpf (0-5) 12/08/17 14:52 Urine Bacteria Occ (<OCC) H 12/08/17 14:52 Blood Type O POSITIVE 12/08/17 14:52 Antibody Screen Negative 12/08/17 14:52 - Hospital Course Hospital Course: Chief complaint: Abdominal pain HPI: 81-year-old male with a history of chronic kidney disease, anemia, hypertension , prostate cancer, status post radiation treatment, history of acute renal insufficiency, bilateral hydronephrosis, bilateral stent in the urethral area, also multiple metastatic pancreatic prostatic cancer. Patient was having difficulty in going to the bathroom for almost 2 weeks. 2 weeks ago patient had a severe constipation, he started using an enema with some improvement. But following that he started having increasing abdominal distention, abdominal discomfort, and poor appetite. He was also having diarrheal episodes on and off. Difficulty in breathing. So he came into the emergency room after he was seen by today he started having increasing abdominal distention, and worsening oncologist in the office. He has a nausea, poor appetite, but no vomiting noted. Patient has some urinary discomfort, and blood in the urine noted Patient in the past had acute renal insufficiency, secondary to obstruction, and underwent a hemodialysis in the past. But post stent placement he started making urine, renal function was returning to near normal. Past medical history: Metastatic prostatic cancer, with intra-abdominal extension. Status post treatment. Hypertension. Depression. Renal insufficiency Anemia. Gallbladder disease Surgical history: Patient had a multiple surgical intervention for the ureteral obstruction. Hemodialysis in the past. Allergies: No known drug allergy Personal history: Non-smoker nonalcoholic. He denies any drug abuse. Patient lives with the family. Patient has a good family support Review of system: He has no headache. He denies any chest pain. Complaining of no nausea vomiting. He does not take any pain medications. Complaining of increasing abdominal discomfort, abdominal distention, constipation on and off. On examination: Vital signs stable. Chest bilateral good air entry. Regular heart sound noted. Abdominal distention, noted. Decreased bowel movements noted. Pedal edema 1+ noted. PHARMACOLOGIST alert awake oriented Labs reviewed Elevation of the creatinine level noted. Anemia present. Chest x-ray is nonspecific Assessment and recommendation: 81-year-old male with a history of hypertension, renal insufficiency, with history of acute intestinal obstruction renal insufficiency in the past. Did have a hemodialysis in the past. Patient has a obstruction secondary to metastatic prostatic cancer, status post distant bilaterally. Patient now have abdominal distention, possibly secondary to dynamic ileus cannot be ruled out. Intestinal obstruction cannot be ruled out. Suggested to have a CAT scan of the abdomen and pelvis. IV fluids to be continued. Rule out hydronephrosis. Hematuria, likely secondary to malignancy. Cultures were ordered. Pain management as needed. GI evaluation may be needed. And also urology. DVT GI prophylaxis. We will follow the patient. Course in the hospital: Patient hospitalized with the possibility of acute intestinal obstruction, and to dehydration acute renal failure. Patient started receiving intravenous IV fluid. CAT scan of the abdomen was done, to rule out intestinal obstruction. Report came as negative for any obstruction. He denies any nausea vomiting, but he is having poor appetite and nausea, and abdominal distention. Discussed with the oncologist. I also spoke to the patient's son regarding the CAT scan findings. Patient is having multiple metastatic lesions involving the paracolic gutter on both sites, and also in the periaortic lymphadenopathy, omental metastatic lesion secondary to prostatic carcinoma. 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 Received 1 unit of blood transfusion. Patient is stable clinically today. Spoke to the patient. Patient was seen by oncologist. He will be discharged home today. He will follow-up as an outpatient with oncologist for further management Final diagnoses: Intestinal obstruction dynamic ileus improved Dehydration Bilateral hydronephrosis with stent placement. Acute renal failure improving. Metastatic prostate cancer. We will follow the patient Discharge Plan - Follow Up Plan Condition: GOOD Disposition: HOME/ ROUTINE Instructions: Fluid in the Belly (Ascites) (DC), Normocytic Normochromic Anemia (DC), Acute Kidney Injury (DC) Referrals: Susanne Huddleston MD [Staff Provider] - Heather Gee MD [Staff Provider] -
== END 2017-12-10 19:00 | disposition home or self-care (01) | DRG 841 ==
LOC: C.ER 13:02 → C.9E 16:25 → C.3T 17:25
PROVIDERS: ADMIT Internal Medicine; ATTEND Internal Medicine
DX: C77.2 Secondary and unspecified malignant neoplasm of intra-abdominal lymph nodes (principal); K56.609 Unspecified intestinal obstruction, unspecified as to partial versus complete obstruction; N17.9 Acute kidney failure, unspecified; N39.0 Urinary tract infection, site not specified; R18.8 Other ascites; I12.0 Hypertensive chronic kidney disease with stage 5 chronic kidney disease or end stage renal disease; N13.30 Unspecified hydronephrosis; N18.5 Chronic kidney disease, stage 5; K56.7 Ileus, unspecified; C61 Malignant neoplasm of prostate; D64.9 Anemia, unspecified; E11.22 Type 2 diabetes mellitus with diabetic chronic kidney disease; E86.0 Dehydration; R62.7 Adult failure to thrive; Z85.46 Personal history of malignant neoplasm of prostate; Z87.440 Personal history of urinary (tract) infections; Z90.49 Acquired absence of other specified parts of digestive tract; Z92.3 Personal history of irradiation